=== PATIENT | female | born 1975 | race African-American/Black ===

== ENCOUNTER 2016-12-14 00:35 | Emergency (ER) | payer MEDICAID ==
[2011-01-06 23:33] VITALS: BMI 21.5
== END 2016-12-14 02:50 | disposition other institution (70) ==
LOC: D.ER 00:35
DX: T20.29XA Burn of second degree of multiple sites of head, face, and neck, initial encounter (principal); T21.21XA Burn of second degree of chest wall, initial encounter; T22.211A Burn of second degree of right forearm, initial encounter; T22.221A Burn of second degree of right elbow, initial encounter; T22.251A Burn of second degree of right shoulder, initial encounter; T22.252A Burn of second degree of left shoulder, initial encounter; T23.201A Burn of second degree of right hand, unspecified site, initial encounter; T23.202A Burn of second degree of left hand, unspecified site, initial encounter; X08.8XXA Exposure to other specified smoke, fire and flames, initial encounter; Y93.E1 Activity, personal bathing and showering; Y92.012 Bathroom of single-family (private) house as the place of occurrence of the external cause

== ENCOUNTER 2017-02-08 18:20 | Emergency (ER) | payer MEDICAID ==
[2011-01-06 23:33] VITALS: BMI 21.5
[2017-02-08 19:51] LABS: BASOPHILS 0.3 % (0-2); EOSINOPHILS 2.7 % (0-7); HEMATOCRIT 31.4 % (36.0-48.0); HEMOGLOBIN 10.5 g/dL (12-16); IMMATURE GRANULOCYTES 0.5 % (0-5); LYMPHOCYTES 40.9 % (15-50); MCH 29.7 pg (26.0-34.0); MCHC 33.4 g/dL (31.0-37.0); MCV 88.7 fL (80.0-100.0); MEAN PLATELET VOLUME 8.5 fL (7.4-10.4); NEUTROPHILS 41.6 % (40-80); RBC 3.54 10x6/uL (4.00-5.40); RDW 14.9 % (11.5-14.5); WBC 5.9 10x3/uL (4.8-10.8)
[2017-02-08 19:56] LABS: PLATELET COUNT 521 10x3/uL (130-400)
[2017-02-08 20:12] LABS: APPEARANCE CLEAR (CLEAR); BILIRUBIN NEGATIVE (NEGATIVE); COLOR YELLOW (YELLOW); GLUCOSE NEGATIVE (NEGATIVE); KETONE NEGATIVE (NEGATIVE); NITRITE NEGATIVE (NEGATIVE); PROTEIN NEGATIVE (NEGATIVE); UROBILINOGEN NORMAL (NORMAL)
[2017-02-08 20:22] LABS: UDS - AMPHET NEGATIVE QUAL (NEGATIVE); UDS - BARB NEGATIVE QUAL (NEGATIVE); UDS - BENZO NEGATIVE QUAL (NEGATIVE); UDS - COCAINE NEGATIVE QUAL (NEGATIVE); UDS - OPIATE POSITIVE QUAL (NEGATIVE); UDS - PCP NEGATIVE QUAL (NEGATIVE); UDS - THC NEGATIVE QUAL (NEGATIVE)
== END 2017-02-08 20:40 | disposition home or self-care (01) ==
LOC: D.ER 18:20
PROVIDERS: Family Medicine
DX: G89.18 Other acute postprocedural pain (principal)

== ENCOUNTER 2017-03-06 11:16 | Emergency (ER) | payer MEDICAID ==
[2011-01-06 23:33] VITALS: BMI 21.5
== END 2017-03-06 12:16 | disposition home or self-care (01) ==
LOC: D.ER 11:16
DX: L03.115 Cellulitis of right lower limb (principal); F14.10 Cocaine abuse, uncomplicated

== ENCOUNTER 2018-01-26 15:12 | Emergency (ER) | payer MEDICAID ==
[~2018-01-26] VITALS: Ht 165.1 cm; Wt 69.5 kg
[2018-01-26 15:17] VITALS: Ht 165.1 cm; Wt 69.5 kg
[2018-01-26] MEDS ORDERED: TOPROL XL25 MG PO (15:19)
[2018-01-26] MEDS ORDERED: NEURONTIN 300300 MG PO (15:20)
[2018-01-26] MEDS ORDERED: BUSPAR10 MG PO (15:20)
[2018-01-26 15:39] LABS: APPEARANCE HAZY (CLEAR); COLOR YELLOW (YELLOW)
[2018-01-26 15:40] LABS: BILIRUBIN NEGATIVE (NEGATIVE); GLUCOSE NEGATIVE (NEGATIVE); KETONE MODERATE mg/dL (NEGATIVE); NITRITE NEGATIVE (NEGATIVE); PROTEIN TRACE mg/dL (NEGATIVE); UROBILINOGEN NORMAL (NORMAL)
[2018-01-26 15:50] LABS: BACTERIA MODERATE /hpf (NONE SEEN); EPITHELIAL CELLS 0-5 /hpf (0-5); HYALINE CAST RARE /lpf (NONE SEEN); WHITE CELLS - URINE 0-5 /hpf (0-5)
[2018-01-26 16:16] LABS: ALBUMIN 3.8 g/dL (3.4-5.0); ANION GAP 14.4 mmol/L (8-16); BILIRUBIN - TOTAL 0.17 mg/dL (0.2-1.3); CALCIUM 9.7 mg/dL (8.5-10.1); CARBON DIOXIDE 26.5 mmol/L (21.0-32.0); CREATININE - SERUM 0.9 mg/dL (0.6-1.3); POTASSIUM - SERUM 3.9 mmol/L (3.5-5.1)
[2018-01-26 16:45] LABS: BASOPHILS 0.2 % (0-2); EOSINOPHILS 0.1 % (0-7); HEMATOCRIT 44.9 % (36.0-48.0); HEMOGLOBIN 15.5 g/dL (12-16); IMMATURE GRANULOCYTES 0.2 % (0-5); LYMPHOCYTES 24.4 % (15-50); MCH 30.9 pg (26.0-34.0); MCHC 34.5 g/dL (31.0-37.0); MCV 89.6 fL (80.0-100.0); MEAN PLATELET VOLUME 10.7 fL (7.4-10.4); MONOCYTES 6.2 % (2-11); NEUTROPHILS 68.9 % (40-80); RBC 5.01 10x6/uL (4.00-5.40); RDW 13.4 % (11.5-14.5); WBC 8.8 10x3/uL (4.8-10.8)
[2018-01-26 16:46] LABS: PLATELET COUNT 303 10x3/uL (130-400)
[2018-01-26 17:48] LABS: HCG URINE NEGATIVE (NEGATIVE)
[2018-01-26] MEDS ORDERED: ZOFRAN8 MG PO (19:02)
[2018-01-26] MEDS ORDERED: OMEPRAZOLE40 MG PO (19:03)
[2018-01-26 19:11] VITALS: BP 122/62
== END 2018-01-26 19:13 | disposition home or self-care (01) ==
LOC: D.ER 15:12
PROVIDERS: Family Medicine
DX: R11.2 Nausea with vomiting, unspecified (principal); I10 Essential (primary) hypertension; F17.200 Nicotine dependence, unspecified, uncomplicated

== ENCOUNTER 2018-04-09 20:32 | Emergency (ER) | payer MEDICAID ==
[~2018-04-09] VITALS: Ht 165.1 cm; Wt 68.2 kg
[~2018-04-09 20:32] MED LIST: BUSPAR10 MG PO; NEURONTIN 300300 MG PO; OMEPRAZOLE40 MG PO; TOPROL XL25 MG PO; ZOFRAN8 MG PO
[2018-04-09 20:39] VITALS: BP 163/104; Ht 165.1 cm; Wt 68.2 kg
[2018-04-10] MEDS ORDERED: ROBAXIN500 MG PO (10:49)
[2018-04-10] MEDS ORDERED: TORADOL10 MG PO (10:49)
== END 2018-04-09 20:40 | disposition left against medical advice (07) ==
LOC: D.ER 20:32
DX: S46.811A Strain of other muscles, fascia and tendons at shoulder and upper arm level, right arm, initial encounter (principal); V43.52XA Car driver injured in collision with other type car in traffic accident, initial encounter; Y93.89 Activity, other specified; Y92.410 Unspecified street and highway as the place of occurrence of the external cause; I10 Essential (primary) hypertension; F17.200 Nicotine dependence, unspecified, uncomplicated

== ENCOUNTER 2018-04-10 10:12 | Emergency (ER) | payer MEDICAID ==
[~2018-04-10] VITALS: Ht 165.1 cm; Wt 68.2 kg
[2018-04-10 10:32] VITALS: Ht 165.1 cm; Wt 68.2 kg
[2018-04-10] MEDS ORDERED: TORADOL10 MG PO (10:49)
[2018-04-10] MEDS ORDERED: ROBAXIN500 MG PO (10:49)
[2018-04-10 10:56] VITALS: BP 148/96
== END 2018-04-10 10:57 | disposition home or self-care (01) ==
LOC: D.ER 10:12
DX: S46.811A Strain of other muscles, fascia and tendons at shoulder and upper arm level, right arm, initial encounter (principal); V43.52XA Car driver injured in collision with other type car in traffic accident, initial encounter; Y93.89 Activity, other specified; Y92.410 Unspecified street and highway as the place of occurrence of the external cause; F17.200 Nicotine dependence, unspecified, uncomplicated

== ENCOUNTER 2018-07-24 15:28 | Emergency (ER) | payer MEDICAID ==
[~2018-07-24] VITALS: Ht 165.1 cm; Wt 63.6 kg
[~2018-07-24 15:28] MED LIST changes: +ROBAXIN500 MG PO; +TORADOL10 MG PO
[2018-07-24 15:42] VITALS: BP 144/108; Ht 165.1 cm; Wt 63.6 kg
== END 2018-07-24 18:12 | disposition left against medical advice (07) ==
LOC: D.ER 15:28
DX: B00.9 Herpesviral infection, unspecified (principal)